=== PATIENT | male | born 1990 | race African-American/Black ===

== ENCOUNTER 2017-02-28 09:35 | Emergency (ER) | payer MEDICAID ==
[2017-02-28 09:39] VITALS: BP 139/92
[2017-02-28] MEDS ORDERED: DIPHENHYDRAMINE HCL 50 MG CAPSULE PO ONE (10:13)
[2017-02-28] MEDS ORDERED: FAMOTIDINE 20 MG TABLET PO ONE (10:13)
[2017-02-28] MEDS ORDERED: METHYLPREDNISOLONE INJ 125 MG/2 ML SDV IM ONE (10:13)
--- NOTE | 2017-02-28 10:22 | ER Document Report ---
HPI - HPI Pain Level: 1 Notes: Patient is a 27-year-old male presents the ED complaining of a rash to his forearms and on his face 3 days. 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 Patient states that the skin feels dry and swollen without any pain, pruritus, or discharge. Patient states that he was sent home from work today so we can come get evaluated for this rash. Patient denies any recent illness, sick contacts, or travel. Patient denies any drug allergies, daily medications, significant past medical history. Denies any smoking or illicit drug use. No other concerns or complaints. Pt states that he is otherwise feeling well. Denies any fever, headache, ear pain, tinnitus, URI, sore throat, dysphagia, chest pain, palpitations, syncope, cough, wheeze, shortness of breath, abdominal pain, nausea/vomiting/diarrhea, dysuria, urethral discharge, joint pains, muscle aches. - ROS Notes: REVIEW OF SYSTEMS: CONSTITUTIONAL : Denies fever, chills, or sweats. Denies recent illness. EENT: Denies eye, ear, throat, or mouth pain or symptoms. Denies nasal or sinus congestion or discharge. Denies throat, tongue, or mouth swelling or difficulty swallowing. CARDIOVASCULAR: Denies chest pain. Denies palpitations or racing or irregular heart beat. Denies ankle edema. RESPIRATORY: Denies cough, cold, or chest congestion. Denies shortness of breath, difficulty breathing, or wheezing. GASTROINTESTINAL: Denies abdominal pain or distention. Denies nausea, vomiting , or diarrhea. Denies blood in vomitus, stools, or per rectum. Denies black, tarry stools. Denies constipation. GENITOURINARY: Denies difficulty urinating, painful urination, burning, frequency, blood in urine, or discharge. MUSCULOSKELETAL: Denies back or neck pain or stiffness. Denies joint pain or swelling. SKIN: see hpi HEMATOLOGIC : Denies easy bruising or bleeding. LYMPHATIC: Denies swollen, enlarged glands. NEUROLOGICAL: Denies confusion or altered mental status. Denies passing out or loss of consciousness. Denies dizziness or lightheadedness. Denies headache. Denies weakness or paralysis or loss of use of either side. Denies problems with gait or speech. Denies sensory loss, numbness, or tingling. ALL OTHER SYSTEMS REVIEWED AND NEGATIVE. Dictation was performed using [employer] voice recognition software - DERM Skin Color: Normal Past Medical History - Social History Smoking Status: Never Smoker Family History: Reviewed & Not Pertinent Patient has suicidal ideation: No Patient has homicidal ideation: No Renal/ Medical History: Denies: Hx Peritoneal Dialysis Past Surgical History: Reports: Hx Orthopedic Surgery - right hip pinning - Immunizations Hx Diphtheria, Pertussis, Tetanus Vaccination: Yes Vertical Provider Document - CONSTITUTIONAL Agree With Documented VS: Yes Notes: PHYSICAL EXAMINATION: GENERAL: Well-appearing, well-nourished and in no acute distress. HEAD: Atraumatic, normocephalic. EYES: Pupils equal round and reactive to light, extraocular movements intact, sclera anicteric, conjunctiva are normal. ENT: EAC clear b/l. TM's intact b/l without erythema, fluid, or perforation. Nares patent and without discharge. oropharynx clear without exudates. No tonsilar hypertrophy or erythema. Moist mucous membranes. No sinus tenderness. No angioedema or resp compromise. NECK: Normal range of motion, supple without lymphadenopathy. No rigidity/ meningismus. LUNGS: Breath sounds clear to auscultation bilaterally and equal. No wheezes rales or rhonchi. HEART: Regular rate and rhythm without murmurs, rubs, gallops. ABDOMEN: Soft, nontender, nondistended abdomen. No guarding, no rebound. No masses appreciated. Normal bowel sounds present. No CVA tenderness bilaterally. Musculoskeletal: ext b/l: FROM to passive/active. Strength 5+/5. Extremities: No cyanosis, clubbing, or edema b/l. Peripheral pulses 2+. Capillary refill less than 3 seconds. NEUROLOGICAL: Cranial nerves grossly intact. Normal speech, normal gait. Normal sensory, motor exams PSYCH: Normal mood, normal affect. SKIN: Raised, dry, mildly erythemic, maculopapules and wheals to the forearms b/ l and around the eyes b/l. Non-tender. No induration. no d/c. no streaks. - INFECTION CONTROL TRAVEL OUTSIDE OF THE [place] IN LAST 30 DAYS: No - RESPIRATORY O2 Sat by Pulse Oximetry: 100 Course - Re-evaluation Re-evalutation: 02/28/17 10:22 Patient is an afebrile, well-hydrated, 27-year-old male presents the ED with a skin rash, suspect contact dermatitis versus atopic eczema/dermatitis. Vitals are stable. PE otherwise unremarkable. Solu-Medrol 125 mg given along with Benadryl 50 mg p.o. & Pepcid 20 mg p.o. Low suspicion for any sepsis, cellulitis, abscess, angioedema, resp compromise, systemic infection otherwise at this time. Conservative measures for symptoms. Patient to monitor symptoms closely for any worsening symptoms. Recheck with your PCM in 2-3 days. Consider consult with dermatology. Return to the ED with any worsening/ concerning symptoms otherwise as reviewed. Patient is in agreement. - Vital Signs Vital signs: Temp Pulse Resp BP Pulse Ox 98.5 F 70 20 139/92 H 100 02/28/17 09:37 02/28/17 09:37 02/28/17 09:37 02/28/17 09:37 02/28/17 09:37 Discharge - Discharge Clinical Impression: Dermatitis Condition: Stable Disposition: HOME, SELF-CARE Additional Instructions: Keep the skin clean and wash daily with a mild soap and water If any break in the skin he may use triple antibiotic ointment such as bacitracin May use cortisone cream on the extremities as needed may take oral Benadryl but watch for drowsiness and do not operate heavy machinery while on medication May use topical Benadryl May also add oral Pepcid to the regimen Recheck with your PCM in 2-3 days (family urgent care) Consider consult with dermatology Return to the ED with any worsening symptoms and/or development of fever, headache, changes in vision, eye pain, sore throat, trouble swallowing, swelling of lips/tongue/throat, chest pain, palpitations, syncope, shortness of breath, trouble breathing, abdominal pain, n/v/d, blood in stool/urine, loss of control of bowel/bladder, urinary retention, muscle weakness/paralysis, numbness /tingling, or other worsening symptoms that are concerning to you. Forms: Elevated Blood Pressure Referrals: DERMATOLOGY [Provider Group] - Follow up as needed [facility] [Provider Group] - Follow up as needed KARLA CORTES DO [ACTIVE STAFF] - Follow up in 3-5 days
== END 2017-02-28 11:12 | disposition home or self-care (01) ==
LOC: ER 09:35
DX: L30.9 Dermatitis, unspecified (principal)
CPT/HCPCS: 99282; 96372; J3490 ×2; J2930

== ENCOUNTER 2018-04-25 09:11 | Emergency (ER) | payer SELFPAY ==
--- NOTE | 2018-04-25 10:23 | ER Document Report ---
HPI - HPI Patient complains to provider of: Sore throat Onset: Just prior to arrival Onset/Duration: Gradual, Persistent Pain Level: 4 Context: 28-year-old male complaining of sore throat and painful swallowing. He did have some fever and chills. Associated Symptoms: None Exacerbated by: Other - Swallowing Relieved by: Denies Similar symptoms previously: No Recently seen / treated by doctor: No - ROS ROS below otherwise negative: Yes Systems Reviewed and Negative: Yes All other systems reviewed and negative Past Medical History - General Information source: Patient - Social History Smoking Status: Unknown if Ever Smoked Frequency of alcohol use: None Drug Abuse: None Lives with: Family Family History: Reviewed & Not Pertinent - Medical History Medical History: Negative Renal/ Medical History: Denies: Hx Peritoneal Dialysis Past Surgical History: Reports: Hx Orthopedic Surgery - right hip pinning - Immunizations Hx Diphtheria, Pertussis, Tetanus Vaccination: Yes Vertical Provider Document - CONSTITUTIONAL Agree With Documented VS: Yes Exam Limitations: No Limitations - INFECTION CONTROL TRAVEL OUTSIDE OF THE [place] IN LAST 30 DAYS: No - HEENT HEENT: Pharyngeal Erythema - Mild exudate on the tonsils, uvula is midline, no peritonsillar abscess. negative: Tympanic Membrane Red, Tympanic Membrane Bulging - NECK Neck: Supple. negative: Lymphadenopathy-Left, Lymphadenopathy-Right - RESPIRATORY Respiratory: Breath Sounds Normal, No Respiratory Distress - CARDIOVASCULAR Cardiovascular: Regular Rate, Regular Rhythm - GI/ABDOMEN Gastrointestinal: Abdomen Soft, Abdomen Non-Tender, No Organomegaly - NEURO Level of Consciousness: Awake - DERM Integumentary: No Rash Course - Re-evaluation Re-evalutation: 04/25/18 10:37 Patient has not exudative tonsillitis bilateral uvula is midline there is no abscess no hot potato voice. The rapid strep is negative but I will still treat him pending the throat culture. - Vital Signs Vital signs: Temp Pulse Resp BP Pulse Ox 98.7 F 64 16 128/73 H 99 04/25/18 09:34 04/25/18 09:34 04/25/18 09:34 04/25/18 09:34 04/25/18 09:34 Discharge - Discharge Clinical Impression: Tonsillitis Condition: Good Disposition: HOME, SELF-CARE Instructions: Acetaminophen, Ibuprofen (General) ([facility]), Penicillin V K ([facility]), Sore Throat ([facility]) Additional Instructions: Finish the penicillin Throat culture is pending Drink plenty of fluids Rest Tylenol and Motrin for pain, fever, inflammation Return to the emergency room any worsening of the symptoms Prescriptions: Penicillin V Potassium [Penicillin Vk 500 mg Tablet] 500 mg PO QID #40 tablet Forms: Return to Work
[2018-04-25 11:01] VITALS: BP 125/72
== END 2018-04-25 11:01 | disposition home or self-care (01) ==
LOC: ER 09:11
DX: J03.90 Acute tonsillitis, unspecified (principal); R13.10 Dysphagia, unspecified; R50.9 Fever, unspecified
CPT/HCPCS: 87070; 87880; 99283

== ENCOUNTER 2019-08-28 08:34 | Emergency (ER) | payer SELFPAY ==
--- NOTE | 2019-08-28 09:55 | RADIOLOGY REPORT (SQ) ---
EXAM DESCRIPTION: HIP RIGHT AP/LATERAL COMPLETED DATE/TIME: 08/28/2019 9:42 am REASON FOR STUDY: tenderness, pain COMPARISON: Right hip films 03/27/2015 NUMBER OF VIEWS: Two views. TECHNIQUE: AP pelvis and additional frog-leg view of the right hip. LIMITATIONS: None. FINDINGS: MINERALIZATION: Normal. RIGHT HIP: No fracture or dislocation. No worrisome bone lesions. Old healed right subcapital femor al neck fracture with very mild femoral neck foreshortening and varus angulation, unchanged from plai n films in 2015. A single lag screw is present without lucency to suggest loosening or infection. LEFT HIP: No fracture or dislocation. No worrisome bone lesions. PUBIS AND ISCHIUM: No fracture. PELVIS: No fracture. SACRUM: No fracture or dislocation. No worrisome bone lesions. LOWER LUMBAR SPINE: No fracture or dislocation. No worrisome bone lesions. No significant disc disea se. SOFT TISSUES: No findings. OTHER: No other significant finding. IMPRESSION: No acute findings. Previously treated, healed right subcapital femoral neck fracture with single lag screw TECHNICAL DOCUMENTATION: JOB ID: [id number]- All Rights Reserved Reading location - IP/workstation name: [email or web address]
--- NOTE | 2019-08-28 10:14 | ER Document Report ---
Entered by PILY GHOSH SCRIBE 08/28/19 0959 Acting as scribe for:MEGHAN SPARKS MD ED General - General Chief Complaint: Hip Pain Stated Complaint: HIP PAIN Time Seen by Provider: 08/28/19 09:41 Mode of Arrival: Ambulatory Information source: Patient Notes: This 29 year old male patient presents to the ED today with complaints of pain near his right posterior lateral inferior rib that has been ongoing for the past x1-2 months. Patient states that he thought the pain was related to the compression screw in his right hip, but realized the pain was higher up his body. Patient notes that initially the pain was of slow onset and that it is worse when he is walking or standing. Patient states that the pain is relieved somewhat when he sits, but it is still uncomfortable. TRAVEL OUTSIDE OF THE [place] IN LAST 30 DAYS: No - Related Data Allergies/Adverse Reactions: No Known Allergies Allergy (Verified 08/28/19 08:53) Past Medical History - General Information source: Patient - Social History Smoking Status: Never Smoker Cigarette use (# per day): No Chew tobacco use (# tins/day): No Smoking Education Provided: No Frequency of alcohol use: None Drug Abuse: None Occupation: [employer] Family History: Reviewed & Not Pertinent Patient has suicidal ideation: No Patient has homicidal ideation: No Past Surgical History: Reports: Hx Orthopedic Surgery - compression screw in right hip - Immunizations Hx Diphtheria, Pertussis, Tetanus Vaccination: Yes Review of Systems - Review of Systems Constitutional: No symptoms reported EENT: No symptoms reported Cardiovascular: No symptoms reported Respiratory: No symptoms reported Gastrointestinal: No symptoms reported Genitourinary: No symptoms reported Male Genitourinary: No symptoms reported Musculoskeletal: See HPI, Muscle pain - Near right posterior lateral inferior rib, Other - Hip pain Skin: No symptoms reported Hematologic/Lymphatic: No symptoms reported Neurological/Psychological: No symptoms reported -: Yes All other systems reviewed and negative Physical Exam - Vital signs Vitals: Temp Pulse Resp BP Pulse Ox 97.7 F 54 L 14 125/76 99 08/28/19 08:41 08/28/19 08:41 08/28/19 08:41 08/28/19 08:41 08/28/19 08:41 Interpretation: Normal - General General appearance: Appears well, Alert In distress: None - HEENT Head: Normocephalic, Atraumatic Eyes: Normal Pupils: PERRL - Respiratory Respiratory status: No respiratory distress Chest status: Nontender Breath sounds: Normal Chest palpation: Normal - Cardiovascular Rhythm: Regular Heart sounds: Normal auscultation Murmur: No - Abdominal Inspection: Normal Distension: No distension Bowel sounds: Normal Tenderness: Nontender - Abdomen soft Organomegaly: No organomegaly - Back Back: Tender - Tender to palpate in right posterior lateral inferior rib area. No: CVA tenderness - Extremities General upper extremity: Normal inspection General lower extremity: Normal inspection Hip: Nontender - Neurological Neuro grossly intact: Yes - Psychological Associated symptoms: Normal affect, Normal mood - Skin Skin Temperature: Warm Skin Moisture: Dry Skin Color: Normal Notes: No rash or skin discoloration near right posterior lateral inferior rib. Course - Re-evaluation Re-evalutation: 08/28/19 11:23 CBC, Chem-12, CRP, UA are all normal. 08/28/19 11:51 Right hip x-ray shows old femoral compression screw with no acute changes. Right rib x-rays do not show any acute findings. - Vital Signs Vital signs: Temp Pulse Resp BP Pulse Ox 97.7 F 54 L 14 125/76 99 08/28/19 08:41 08/28/19 08:41 08/28/19 08:41 08/28/19 08:41 08/28/19 08:41 - Laboratory Result Diagrams: 08/28/19 10:17 08/28/19 10:17 Laboratory results interpreted by me: 08/28/19 10:17 Carbon Dioxide 31 H - Diagnostic Test Radiology reviewed: Image reviewed, Reports reviewed - Right hip shows old intratrochanteric compression screw. Right rib x-rays are unremarkable. Discharge - Discharge Clinical Impression: Rib pain on right side Condition: Stable Disposition: HOME, SELF-CARE Additional Instructions: Chest Wall Pain: Your lateral chest/side pain has been diagnosed as coming from the inferior ribs. This is often caused by straining the muscles or ribs during physical activity, direct trauma, coughing, or vigorous vomiting. Occasionally, no cause can be found. This kind of chest pain is usually made worse by movement of the chest. Depending on the symptoms, we may prescribe medicine for pain, muscle relaxation, and antiinflammatory effects. If the pain is new, and seems to be due to muscle strain, cold packs can hel p. Otherwise, apply gentle warmth to the painful area for 15 minutes every hour or two. You should contact the doctor immediately if things change. Further evaluation is needed if you develop a fever or cough, if the nature of the pain changes, or if you become short of breath. Take the medications as prescribed. Limit activities that make the pain worse is much as you are able to. Follow-up with a local medical doctor if not improving over the next few weeks. RETURN TO THE EMERGENCY ROOM IF ANY NEW OR WORSENING SYMPTOMS. Prescriptions: Cyclobenzaprine HCl [Flexeril 5 mg Tablet] 5 mg PO TID PRN #15 tablet PRN Reason: Naproxen [Naprosyn] 500 mg PO BID #20 tablet Scribe Attestation: 08/28/19 10:14 I personally performed the services described in the documentation, reviewed and edited the documentation which was dictated to the scribe in my presence, and it accurately records my words and actions. I personally performed the services described in the documentation, reviewed and edited the documentation which was dictated to the scribe in my presence, and it accurately records my words and actions.
[2019-08-28 10:45] LABS: ABSOLUTE LYMPHOCYTES (AUTO) 2.4 10^3/uL (0.5-4.7); ABSOLUTE MONOCYTES (AUTO) 0.8 10^3/uL (0.1-1.4); BASOPHILS % (AUTO) 0.7 % (0-2); EOSINOPHILS % (AUTO) 0.6 % (0-6); HEMATOCRIT 45.9 % (37.9-51.0); HEMOGLOBIN 15.5 g/dL (13.5-17.0); LYMPHOCYTES % (AUTO) 33.2 % (13-45); MEAN CORPUSCULAR HEMOGLOBIN 32.4 pg (27.0-33.4); MEAN CORPUSCULAR HGB CONC 33.8 g/dL (32.0-36.0); MEAN CORPUSCULAR VOLUME 96 fl (80-97); MONOCYTES % (AUTO) 10.4 % (3-13); PLATELET COUNT 260 10^3/uL (150-450); RED BLOOD COUNT 4.78 10^6/uL (4.35-5.55); SEGMENTED NEUTROPHILS % (AUTO) 55.1 % (42-78); TOTAL CELLS COUNTED % (AUTO) 100 %; WHITE BLOOD COUNT 7.3 10^3/uL (4.0-10.5)
[2019-08-28 10:51] LABS: APPEARANCE,URINE CLEAR; BILIRUBIN,URINE NEGATIVE (NEGATIVE); COLOR,URINE YELLOW; GLUCOSE, URINE NEGATIVE (NEGATIVE); KETONES,URINE NEGATIVE (NEGATIVE); LEUKOCYTE ESTERASE,URINE NEGATIVE (NEGATIVE); NITRITE,URINE NEGATIVE (NEGATIVE); PROTEIN,URINE NEGATIVE (NEGATIVE); URINE SPECIFIC GRAVITY 1.028; UROBILINOGEN,URINE NEGATIVE mg/dL (<2.0)
[2019-08-28 10:58] LABS: ALBUMIN 4.4 g/dL (3.5-5.0); ALKALINE PHOSPHATASE 64 U/L (38-126); ANION GAP 8 (5-19); ASPARTATE AMINO TRANSFERASE 25 U/L (17-59); BILIRUBIN,DIRECT 0.2 mg/dL (0.0-0.4); BILIRUBIN,TOTAL 0.4 mg/dL (0.2-1.3); BLOOD UREA NITROGEN 11 mg/dL (7-20); C-REACTIVE PROTEIN 9.2 mg/L (<10.0); CALCIUM 9.6 mg/dL (8.4-10.2); CARBON DIOXIDE 31 mmol/L (22-30); CHLORIDE 102 mmol/L (98-107); GLUCOSE 95 mg/dL (75-110); POTASSIUM 4.9 mmol/L (3.6-5.0); TOTAL PROTEIN 7.8 g/dL (6.3-8.2)
--- NOTE | 2019-08-28 11:49 | RADIOLOGY REPORT (SQ) ---
EXAM DESCRIPTION: RIBS RIGHT W/PA CHEST COMPLETED DATE/TIME: 08/28/2019 10:50 am REASON FOR STUDY: R inf lat rib pain COMPARISON: Chest films 04/11/2015 TECHNIQUE: Frontal view of the chest and additional views of the right ribs acquired. NUMBER OF VIEWS: PA chest Right rib detail three views LIMITATIONS: None. FINDINGS: FRONTAL CXR: No pneumothorax. No pleural effusion. No atelectasis or infiltrates. Cardi ac silhouette size, aurelia unremarkable. RIBS: No displaced rib fractures. No lytic or blastic bony lesions. OTHER: No other significant finding. IMPRESSION: NO PNEUMOTHORAX. NO DISPLACED RIB FRACTURES. COMMENT: SITE OF TRAUMA/COMPLAINT MARKED/STAMP COMPLETED: Yes TECHNICAL DOCUMENTATION: JOB ID: [id number] [employer]- All Rights Reserved Reading location - IP/workstation name: [email or web address]
[2019-08-28 12:02] VITALS: BP 116/69
== END 2019-08-28 12:11 | disposition home or self-care (01) ==
LOC: ER 08:34
DX: R07.81 Pleurodynia (principal); M79.18 Myalgia, other site; M25.559 Pain in unspecified hip; Z98.890 Other specified postprocedural states
CPT/HCPCS: 36415; 80053; 81001; 85025; 86140; 99283